=== PATIENT | female | born 1985 | race Caucasian/White ===

== ENCOUNTER → 2020-01-04 09:35 | Outpatient (BNVA) | payer OTHER, SELFPAY | PROVIDERS: Family Provider Nurse Practitioner Family; PCP Nurse Practitioner Family; Visit Provider Registered Nurse | DX: Z86.2 Personal history of diseases of the blood and blood-forming organs and certain disorders involving the immune mechanism (principal); S46.911A Strain of unspecified muscle, fascia and tendon at shoulder and upper arm level, right arm, initial encounter; X58.XXXA Exposure to other specified factors, initial encounter | CPT/HCPCS: 80053; 85025 ==

== ENCOUNTER → 2020-01-23 08:47 | Outpatient (BNVA) | payer OTHER, SELFPAY | PROVIDERS: Family Provider Nurse Practitioner Family; PCP Nurse Practitioner Family; Visit Provider Registered Nurse | DX: M25.519 Pain in unspecified shoulder (principal); Z01.89 Encounter for other specified special examinations | CPT/HCPCS: 85651; 86140; 86431 ==

== ENCOUNTER 2020-12-28 06:09 | Emergency (ER) | payer OTHER, SELFPAY ==
[2020-12-28 06:14] VITALS: BP 116/80; PULSE 78; RESP 22; TEMP 36.5; O2SAT 100; BMI 32.1
--- NOTE | 2020-12-28 06:25 | CTR_ITS ---
PROCEDURE INFORMATION: Exam: CT Abdomen And Pelvis Without Contrast Exam date and time: 12/28/2020 6:25 AM Age: 35 years old Clinical indication: Abdominal pain; Flank; Right; Additional info: Kidney stone TECHNIQUE: Imaging protocol: Computed tomography of the abdomen and pelvis without contrast. Radiation optimization: All CT scans at this facility use at least one of these dose optimization techniques: automated exposure control; mA and/or kV adjustment per patient size (includes targeted exams where dose is matched to clinical indication); or iterative reconstruction. COMPARISON: No relevant prior studies available. RADIATION DOSE METRICS: Total DLP (mGy-cm): 1254.69 FINDINGS: Liver: Normal. No mass. Gallbladder and bile ducts: Multiple gallstones within the gallbladder. Pancreas: Normal. No ductal dilation. Spleen: Normal. No splenomegaly. Adrenal glands: Normal. No mass. Kidneys and ureters: Bilateral nonobstructing renal calyceal stones. 2 mm right UVJ stone with moderate right hydronephrosis. Stomach and bowel: Unremarkable. No obstruction. No mucosal thickening. Appendix: Normal appendix. Intraperitoneal space: Unremarkable. No free air. No significant fluid collection. Vasculature: One or more calcified pelvic phleboliths. Calcification of the abdominal aorta and/or iliac arteries consistent with atherosclerotic vessel disease. Lymph nodes: Unremarkable. No enlarged lymph nodes. Urinary bladder: Unremarkable as visualized. Reproductive: Unremarkable as visualized. Bones/joints: Unremarkable. No acute fracture. Soft tissues: Unremarkable. CT/CT abdomen pelvis wo con [id number] IMPRESSION: 1. 2 mm right UVJ stone with moderate right hydronephrosis. 2. Multiple gallstones within the gallbladder. Radiation Dose CTDIVOL = (mGy): DLP = 1254.69 (mGy-cm)
[2020-12-28 06:27] LABS: Basophils # 0.1 10^3/uL (0.0-0.1); Basophils % 0.8 %; Eosinophils # 0.1 10^3/uL (0.0-0.8); Eosinophils % 0.9 %; Hematocrit 35.4 % (37.0-47.0); Hemoglobin 10.7 g/dL (11.5-15.3); Lymphocytes # 2.3 10^3/uL (0.8-4.8); Lymphocytes % 35.6 %; Mean Corpuscular HGB Conc 30.2 g/dL (30.0-36.0); Mean Corpuscular Hemoglobin 23.2 pg (28.0-34.0); Mean Corpuscular Volume 76.8 fl (81-99); Mean Platelet Volume 9.7 fL (7.4-10.4); Monocytes # 0.8 10^3/uL (0.2-0.9); Monocytes % 12.9 %; Neutrophils # 3.13 10^3/uL (1.8-7.7); Neutrophils % 49.3 %; Nucleated Red Blood Cells % 0 %; Platelet Count 376 10^3/cmm (130-400); Red Blood Count 4.61 10^6/uL (4.1-5.3); Red Cell Distribution Width 17.2 % (12.1-15.1); White Blood Count 6.4 10^3/uL (4.0-10.0)
[2020-12-28] MEDS: sodium chloride 0.9% 1,000 ML 999 ML IV ×2 (06:30)
[2020-12-28] MEDS: ketorolac 30 mg/mL INJ IVP (06:35)
[2020-12-28 06:49] LABS: Alanine Aminotransferase 6 U/L (0-33); Albumin Level 4.2 g/dL (3.5-5.2); Alkaline Phosphatase 58 IU/L (35-105); Aspartate Amino Transferase 12 U/L (0-32); Blood Urea Nitrogen 14 mg/dL (6-20); Calcium 9.4 mg/dL (8.5-10.5); Carbon Dioxide 24 mmol/L (22-29); Chloride 104 mmol/L (98-107); Globulin 3.2 g/dL (1.3-4.6); Glomerular Filtration Rate 94.2 mL/min (90-130); Glucose 98 mg/dL (65-115); Lipase 30 U/L (13-60); Osmolality Calculated 286 mOsm/kg (285-295); Sodium 138 mmol/L (136-145); Total Bilirubin 0.5 mg/dL (0.15-1.2); Total Protein 7.4 g/dL (6.6-8.7)
--- NOTE | 2020-12-28 08:00 | W.ED.GENADLT ---
HPI - General Adult General: Chief complaint: Urogenital-Female Stated complaint: Unable to Urinate/Back Pain Time Seen by Provider: 12/28/20 06:10 History of Present Illness: HPI narrative: HPI: [35] yo patient w/ hx of L sided renal colic presenting to the ED w/ R-sided flank pain x 2. Patient describes the pain as sudden onset severe intermittent crampy pain. Denies N/V since onset of symptoms and has not been able to tolerate PO. No prior abdominal surgeries. Denies fever/chill, dysuria/[]hematuria/polyuria, diarrhea, melena/hematochezia/ or hematemesis. No associated chest pain, SOB, palpitations, exertional shortness of breath and chest pain, or pleuritic chest pain. Onset: 2 days Duration: ongoing Location: home Severity: moderate Review of Systems Narrative: Constitutional: No fever, no chills. HEENT: No vision changes CV: No chest pain, no palpitations PULM: No productive cough, no dyspnea. GI: No abdominal pain, -N/-V/-D. +R-sided flank pain : No Dysuria, no hematuria MSKEL: No muscle pain SKIN: No new rashes, no lesions. NEURO: No headache, no focal weakness. HEME: No visible bruises PSYCH: Normal mood PFSH ED PFSH: Medical History (Updated 12/28/20 @ 08:04 by Alvin Aguirre MD) History of anemia Family History Mother Hypertension Heart disease Father Heart disease Social History Smoking and tobacco status: never smoked Alcohol intake: never Adopted: No Caregiver/support person: No Lives independently: No Household members: spouse and children Marital status: History of recent travel: No Sexually active: Yes Current gender identity: Female Physical Exam Narrative: EXAM NARRATIVE: Head: Atraumatic Eyes: PERRL, conjunctiva without injection, eyes tracking ENT: Mucous membrane moist NECK: Supple without lymphadenopathy LUNGS: LCTAB CV: RRR ABDOMEN: Soft, diffuse abdominal tenderness worse in the R flank, no guarding or rebound tenderness, no McBurney?s point tenderness, no Rovsing/Obturator signs, no Zafar's sign, mild R-sided CVA tenderness EXTREMITY: Normal ROM SKIN: No rash or erythema NEURO: Awake and alert. No focal weakness PSYCH: Cooperative mood and affect Course Vital Signs: Vital signs: Vital Signs Temperature 97.7 F 12/28/20 06:14 Pulse Rate 56 L 12/28/20 10:33 Respiratory Rate 17 12/28/20 10:33 Blood Pressure 105/60 12/28/20 10:33 Pulse Oximetry 96 12/28/20 10:33 MDM - General Adult MDM Narrative: Medical decision making narrative: [35]yo patient w/ hx of nephrolithiasis presenting R-sided flank pain with symptoms consistent with prior presentations of renal colic. Given History and Exam I have lower suspicion for atypical appendicitis, genital torsion, acute cholecystitis, AAA, Aortic Dissection, Serious Bacterial Illness or other emergent intra abdominal pathology. Workup: CBC, BMP, UA, CT abd+pelvis w/o contrast Interventions: IVF, Toradol, PO challenge Findings: UA w/ RBCs. no signs of infection [8:10am] On reassessment, the patient feels pain is improved symptomatic after fluids and medications. No complaints of pain currently. Exam improved on reassessment. Lab evaluation not consistent with acute infection. UA is clear. At this time, the patient has been able to tolerate PO and ambulate in the ER without issues. Disposition: Discharge. Strict return precautions for infected stone or PO intolerance/dehydration discussed. Given Urology follow up should the patient need expert opinion. Lab Data: Labs: Lab Results 12/28/20 12/28/20 12/28/20 06:22 06:22 06:22 WBC 6.4 10^3/uL 10^3/ uL (4.0-10.0) RBC 4.61 10^6/uL 10^6 /uL (4.1-5.3) Hgb 10.7 g/dL L g/dL (11.5-15.3) Hct 35.4 % L % (37.0-47.0) MCV 76.8 fl L fl (81-99) MCH 23.2 pg L pg (28.0-34.0) MCHC 30.2 g/dL g/dL (30.0-36.0) RDW 17.2 % H % (12.1-15.1) Plt Count 376 10^3/cmm 10^3 /cmm (130-400) MPV 9.7 fL fL (7.4-10.4) Neut % (Auto) 49.3 % % Lymph % (Auto) 35.6 % % [place] % (Auto) 12.9 % % Eos % (Auto) 0.9 % % Baso % (Auto) 0.8 % % Neut # (Auto) 3.13 10^3/uL 10^3 /uL (1.8-7.7) Lymph # (Auto) 2.3 10^3/uL 10^3/ uL (0.8-4.8) [place] # (Auto) 0.8 10^3/uL 10^3/ uL (0.2-0.9) Eos # (Auto) 0.1 10^3/uL 10^3/ uL (0.0-0.8) Baso # (Auto) 0.1 10^3/uL 10^3/ uL (0.0-0.1) Nucleated RBC % (a uto) 0 % % Nucleated RBCs # 0.0 /100WBC /100W BC Sodium 138 mmol/L mmol/L (136-145) Potassium 4.0 mmol/L mmol/L (3.5-5.1) Chloride 104 mmol/L mmol/L (98-107) Carbon Dioxide 24 mmol/L mmol/L (22-29) Anion Gap 14.0 (5-19) BUN 14 mg/dL mg/dL (6-20) Creatinine 0.7 mg/dL mg/dL (0.5-0.9) GFR Calculation 94.2 mL/min mL/mi n (90-130) Glucose 98 mg/dL mg/dL (65-115) Calculated Osmolal ity 286 mOsm/kg mOsm/ kg (285-295) Calcium 9.4 mg/dL mg/dL (8.5-10.5) Total Bilirubin 0.5 mg/dL mg/dL (0.15-1.2) AST 12 U/L U/L (0-32) ALT 6 U/L U/L (0-33) Alkaline Phosphata se 58 IU/L IU/L (35-105) Total Protein 7.4 g/dL g/dL (6.6-8.7) Albumin 4.2 g/dL g/dL (3.5-5.2) Globulin 3.2 g/dL g/dL (1.3-4.6) Lipase 30 U/L U/L (13-60) Urine Color Urine Appearance Urine pH Ur Specific Gravit y Urine Protein Urine Glucose (UA) Urine Ketones Urine Blood Urine Nitrate Urine Bilirubin Urine Urobilinogen Ur Leukocyte Cassie ase Urine RBC Urine WBC Ur Squamous Epith Cells Amorphous Sediment Urine Bacteria Urine HCG, Qual Negative (Negative) 12/28/20 09:00 WBC RBC Hgb Hct MCV MCH MCHC RDW Plt Count MPV Neut % (Auto) Lymph % (Auto) [place] % (Auto) Eos % (Auto) Baso % (Auto) Neut # (Auto) Lymph # (Auto) [place] # (Auto) Eos # (Auto) Baso # (Auto) Nucleated RBC % (a uto) Nucleated RBCs # Sodium Potassium Chloride Carbon Dioxide Anion Gap BUN Creatinine GFR Calculation Glucose Calculated Osmolal ity Calcium Total Bilirubin AST ALT Alkaline Phosphata se Total Protein Albumin Globulin Lipase Urine Color Yellow (Yellow) Urine Appearance Clear (CLEAR) Urine pH 6 (5-7) Ur Specific Gravit y 1.015 (1.005-1.030) Urine Protein Neg (Negative) Urine Glucose (UA) Norm (Normal) Urine Ketones 1+ H (Negative) Urine Blood 2+ H (Negative) Urine Nitrate Negative (Negative) Urine Bilirubin Neg (Negative) Urine Urobilinogen Norm mg/dL mg/dL (Negative) Ur Leukocyte Cassie ase Negative (Negative) Urine RBC 0-4 /hpf H /hpf (0-2) Urine WBC Rare /hpf /hpf (0-5) Ur Squamous Epith Cells 0-4 /hpf H /hpf (0-5) Amorphous Sediment Not Reportable Urine Bacteria Trace /hpf /hpf (NONE) Urine HCG, Qual Imaging Data^: Other Imaging: Radiologist's impression: [address] [id number] Scan ReportSigned Patient: Bernadette Abdi #: [id number]: [id number]#:[id number]/Sex: 35 / FADM Date: 12/28/20Loc: ERRoom/Bed:Attending Dr: Ordering Provider/Ordering MD: Alvin Aguirre MD Date of Service: 12/28/20 Procedure(s): CT abdomen pelvis wo con [id number] Accession Number(s): [id number] Report Number: [id number] PROCEDURE INFORMATION: Exam: CT Abdomen And Pelvis Without Contrast Exam date and time: 12/28/2020 6:25 AM Age: 35 years old Clinical indication: Abdominal pain; Flank; Right; Additional info: Kidney stone TECHNIQUE: Imaging protocol: Computed tomography of the abdomen and pelvis without contrast. Radiation optimization: All CT scans at this facility use at least one of these dose optimization techniques: automated exposure control; mA and/or kV adjustment per patient size (includes targeted exams where dose is matched to clinical indication); or iterative reconstruction. COMPARISON: No relevant prior studies available. RADIATION DOSE METRICS: Total DLP (mGy-cm): 1254.69 FINDINGS: Liver: Normal. No mass. Gallbladder and bile ducts: Multiple gallstones within the gallbladder. Pancreas: Normal. No ductal dilation. Spleen: Normal. No splenomegaly. Adrenal glands: Normal. No mass. Kidneys and ureters: Bilateral nonobstructing renal calyceal stones. 2 mm right UVJ stone with moderate right hydronephrosis. Stomach and bowel: Unremarkable. No obstruction. No mucosal thickening. Appendix: Normal appendix. Intraperitoneal space: Unremarkable. No free air. No significant fluid collection. Vasculature: One or more calcified pelvic phleboliths. Calcification of the abdominal aorta and/or iliac arteries consistent with atherosclerotic vessel disease. Lymph nodes: Unremarkable. No enlarged lymph nodes. Urinary bladder: Unremarkable as visualized. Reproductive: Unremarkable as visualized. Bones/joints: Unremarkable. No acute fracture. Soft tissues: Unremarkable. CT/CT abdomen pelvis con [id number] IMPRESSION: 1. 2 mm right UVJ stone with moderate right hydronephrosis. 2. Multiple gallstones within the gallbladder. Radiation Dose CTDIVOL = (mGy): DLP = 1254.69 (mGy-cm) Dictated By:Sudarshan Ramon MDSigned By:Sudarshan Ramon MDSigned Date/Time:12/28/20 0748DD/ 4 Discharge Plan Discharge Patient Disposition: Home Clinical Impression: Renal colic Condition: Stable Prescriptions: No Action baclofen 10 mg tablet 10 mg PO DAILY Qty: 30 RF: 0 prednisone 20 mg tablet 20 mg PO BID 10 Days Qty: 20 RF: 0 Discharge Orders: Discharge ED (Routine); Ordered 12/28/20 Ordered By: Alvin Aguirre Discharge Diet: Advance as tolerated Discharge Activity: Resume usual activity Patient Instructions: Abdominal Pain (ED), Flank Pain (ED) Activity Restrictions/Additional Instructions: Come back to the emergency room you have any worsening pain, fever/chills, nausea/vomiting, or any new concerning complaints. You have a kidney stone today. Attached below is your CT report: [id number] [place], [place] [address] Scan ReportSigned Patient: Mulu AbdiUnit #: [id number]: [id number]#:[id number]/Sex: 35 / FADM Date: 12/28/20Loc: ERRoom/Bed:Attending Dr: Ordering Provider/Ordering MD: Alvin Aguirre MD Date of Service: 12/28/20 Procedure(s): CT abdomen pelvis con [id number] Accession Number(s): [id number] Report Number: [id number] PROCEDURE INFORMATION: Exam: CT Abdomen And Pelvis Without Contrast Exam date and time: 12/28/2020 6:25 AM Age: 35 years old Clinical indication: Abdominal pain; Flank; Right; Additional info: Kidney stone TECHNIQUE: Imaging protocol: Computed tomography of the abdomen and pelvis without contrast. Radiation optimization: All CT scans at this facility use at least one of these dose optimization techniques: automated exposure control; mA and/or kV adjustment per patient size (includes targeted exams where dose is matched to clinical indication); or iterative reconstruction. COMPARISON: No relevant prior studies available. RADIATION DOSE METRICS: Total DLP (mGy-cm): 1254.69 FINDINGS: Liver: Normal. No mass. Gallbladder and bile ducts: Multiple gallstones within the gallbladder. Pancreas: Normal. No ductal dilation. Spleen: Normal. No splenomegaly. Adrenal glands: Normal. No mass. Kidneys and ureters: Bilateral nonobstructing renal calyceal stones. 2 mm right UVJ stone with moderate right hydronephrosis. Stomach and bowel: Unremarkable. No obstruction. No mucosal thickening. Appendix: Normal appendix. Intraperitoneal space: Unremarkable. No free air. No significant fluid collection. Vasculature: One or more calcified pelvic phleboliths. Calcification of the abdominal aorta and/or iliac arteries consistent with atherosclerotic vessel disease. Lymph nodes: Unremarkable. No enlarged lymph nodes. Urinary bladder: Unremarkable as visualized. Reproductive: Unremarkable as visualized. Bones/joints: Unremarkable. No acute fracture. Soft tissues: Unremarkable. CT/CT abdomen pelvis wo con [id number] IMPRESSION: 1. 2 mm right UVJ stone with moderate right hydronephrosis. 2. Multiple gallstones within the gallbladder. Radiation Dose CTDIVOL = (mGy): DLP = 1254.69 (mGy-cm) Dictated By:Sudarshan Ramon MDSigned By:Sudarshan Ramon MDSigned Date/Time:12/28/20 0748DD/ 0625 Coding Level of Care Code ED Sewer Inspector for Hari Kumar
[2020-12-28 09:13] LABS: Urine Appearance Clear (CLEAR); Urine Color Yellow (Yellow)
[2020-12-28 09:14] LABS: Add Urine Microscopic? YES; Bilirubin Urine Neg (Negative); Blood Urine 2+ (Negative); Glucose Urine UA Norm (Normal); Ketones Urine 1+ (Negative); Leukocyte Esterase Urine Negative (Negative); Nitrate Urine Negative (Negative); Protein Urine Neg (Negative); Specific Gravity, Urine 1.015 (1.005-1.030); Urobilinogen Urine Norm (Negative); pH Urine 6 (5-7)
--- NOTE | 2020-12-28 09:17 | PC.NURSE ---
ERP notified of pt's hypotension. No new orders rec'd.
[2020-12-28 09:21] LABS: Bacteria Urine TRACE /hpf; RBC Urine 0-4 /hpf (0-2); Squamous Epithelial Cell Urine 0-4 /hpf (0-5); WBC Urine RARE /hpf (0-5)
[2020-12-28 10:33] VITALS: BP 105/60; PULSE 56; RESP 17; O2SAT 96
== END 2020-12-28 10:36 | disposition home or self-care (01) ==
PROVIDERS: Emergency Provider Emergency Medicine
DX: N23 Unspecified renal colic (principal)
CPT/HCPCS: 74176; 80053; 81001; 81025; 83690; 85025; 96361; 96374; 99284; J1885; J7030

== ENCOUNTER 2021-09-29 18:50 | Emergency (ER) | payer OTHER, SELFPAY ==
[2021-09-29 18:59] VITALS: BP 120/87; PULSE 132; RESP 20; TEMP 36.6; O2SAT 97; BMI 33.0
[2021-09-29 19:38] LABS: Add Urine Microscopic? NO; Charge for UA Resulting for Rev
[2021-09-29 19:47] LABS: Urine Color Yellow (Yellow)
[2021-09-29 19:48] LABS: Bilirubin Urine Neg (Negative); Blood Urine Neg (Negative); Glucose Urine UA Norm (Normal); Ketones Urine Negative (Negative); Leukocyte Esterase Urine Negative (Negative); Nitrate Urine Negative (Negative); Protein Urine Neg (Negative); Urine Appearance Clear (CLEAR); Urobilinogen Urine Norm (Negative); pH Urine 6 (5-7)
--- NOTE | 2021-09-29 20:38 | CTR_ITS ---
PROCEDURE INFORMATION: Exam: CT Abdomen And Pelvis Without Contrast Exam date and time: 09/29/2021 8:59 PM Age: 36 years old Clinical indication: Pain; Other: Left flank; Additional info: Kidney stone TECHNIQUE: Imaging protocol: Computed tomography of the abdomen and pelvis without contrast. Radiation optimization: All CT scans at this facility use at least one of these dose optimization techniques: automated exposure control; mA and/or kV adjustment per patient size (includes targeted exams where dose is matched to clinical indication); or iterative reconstruction. COMPARISON: CT abdomen pelvis wo con [id number] 12/28/2020 6:55 AM RADIATION DOSE METRICS: Total DLP (mGy-cm): 715.83 FINDINGS: Liver: Normal. No mass. Gallbladder and bile ducts: Cholelithiasis. Pancreas: Normal. No ductal dilation. Spleen: Normal. No splenomegaly. Adrenal glands: Normal. No mass. Kidneys and ureters: Left distal ureter 5.3 mm calculus with moderate hydronephrosis and hydroureter with perinephric edema perhaps reflecting associated pyelonephritis. Right kidney nonobstructing calyceal stone. Stomach and bowel: Unremarkable. No obstruction. No mucosal thickening. Appendix: No evidence of appendicitis. Intraperitoneal space: Unremarkable. No free air. No significant fluid collection. Vasculature: Unremarkable. No abdominal aortic aneurysm. Lymph nodes: Unremarkable. No enlarged lymph nodes. Urinary bladder: Unremarkable as visualized. Reproductive: Left ovary 2.3 cm cyst likely follicular in nature. Bones/joints: Unremarkable. No acute fracture. Soft tissues: Unremarkable. Other findings: Small amount nonspecific fluid in the pelvis. CT/CT kidney stone [id number] IMPRESSION: 1. Left distal ureter 5.3 mm calculus with moderate hydronephrosis and hydroureter with perinephric edema perhaps reflecting associated pyelonephritis. 2. Small amount nonspecific fluid in the pelvis. 3. Cholelithiasis. 4. Right kidney nonobstructing calyceal stone. 5. Left ovary 2.3 cm cyst likely follicular in nature.
--- NOTE | 2021-09-29 20:40 | W.ED.ABDPA2 ---
HPI - Abdominal Pain General: Chief Complaint: Abdominal Pain Stated Complaint: Kidney Pain/can't pee Time Seen by Provider: 09/29/21 20:33 Source: patient Mode of arrival: ambulatory Limitations: no limitations History of Present Illness: 36-year-old female states she had a history of kidney stones states that 2 this afternoon started having severe flank pain. States that this felt like her previous kidney stones she states the pain is sharp in nature rates it a 9 out of 10 as well as she is got a vomit. She denies any worsening improving factors denies any fever denies any dysuria. Associated Symptoms: Reports nausea; Denies chills and fever(s) Related Data: Date of Last Menstrual Period: 09/12/21 Review of Systems Const: Denies: fever(s), chills, body aches or change in appetite Eyes: Denies: blurry vision or eye discomfort ENMT: Denies: throat pain or dental pain Card: Denies: chest pain Resp: Denies: dyspnea GI: Reports: abdominal pain and nausea : Reports: flank pain Musc: Denies: neck pain or back pain Skin/Breast: Denies: rash Neuro: Denies: headache(s) Psych: Denies: depression Ed/Lymph: Denies: easy bruising All/Imm: Denies: urticaria PFSH ED PFSH: Medical History History of anemia Family History Mother Hypertension Heart disease Father Heart disease Social History Smoking and tobacco status: never smoked Alcohol intake: never Adopted: No Caregiver/support person: No Lives independently: No Household members: spouse and children Marital status: History of recent travel: No Sexually active: Yes Current gender identity: Female Female Reproductive History: Date of last menstrual period: 09/12/21 Physical Exam Const: COMMON NORMALS: no acute distress, patient oriented x3 and healthy appearing HENMT: COMMON NORMALS: normocephalic and atraumatic HEAD & SCALP: normocephalic and atraumatic Eye: COMMON NORMALS: Equal, round and reactive pupils present and EOMs intact bilaterally PUPIL: Yes Equal, round and reactive pupils present Neck/C-Spine: COMMON NORMALS: full ROM and supple Chest: COMMONS NORMALS: normal inspection of the chest and normal palpation of entire chest wall Resp: COMMON NORMALS: normal respiratory effort, No retractions, No use of accessory muscles and clear to auscultation bilaterally AUSCULTATION: clear to auscultation bilaterally Cardio: COMMON NORMALS: regular rate, regular rhythm and No murmurs present (Cardio) RATE: regular rate RHYTHM: regular rhythm GI: COMMON NORMALS: Normal to inspection, nondistended, normoactive bowel sounds present, Soft to palpation, non-tender and no masses PALPATION: Yes Soft to palpation Extremity: COMMON NORMALS: normal to inspection and full ROM Neuro: COMMON NORMALS: patient oriented x3, moves all extremities and no focal motor deficits Psych: COMMON NORMALS: mental status grossly normal, Normal thought process present and cooperative THOUGHT PROCESS: Normal thought process present Skin: COMMON NORMALS: no rashes or lesions noted and no wounds GENERAL SKIN EXAM: no rashes or lesions noted Course Vital Signs: Vital signs: Vital Signs Temperature 97.9 F 09/29/21 18:59 Pulse Rate 73 09/29/21 22:11 Respiratory Rate 16 09/29/21 22:11 Blood Pressure 117/93 09/29/21 22:11 Pulse Oximetry 100 09/29/21 22:11 Oxygen Delivery Me thod Nasal Cannula 09/29/21 21:54 MDM - Abdominal Pain Medical Decision Making Patient presents here with kidney stone likely causing her pain. Her pain is much improved here after pain meds. Will discharge home with a strainer she has no signs of pyelonephritis her urine here is clean. She is to follow-up with urology return if worsening will prescribe her Norris for home she understands agrees to plan. Lab Data : 09/29/21 20:55 09/29/21 20:55 Labs/Radiology: Radiology Impressions Abdomen/Pelvis CT 09/29/21 20:38 IMPRESSION: 1. Left distal ureter 5.3 mm calculus with moderate hydronephrosis and hydroureter with perinephric edema perhaps reflecting associated pyelonephritis. 2. Small amount nonspecific fluid in the pelvis. 3. Cholelithiasis. 4. Right kidney nonobstructing calyceal stone. 5. Left ovary 2.3 cm cyst likely follicular in nature. Laboratory Results WBC 13.4 10^3/uL (4.0-10.0) H 09/29/21 20:55 RBC 4.19 10^6/uL (4.1-5.3) 09/29/21 20: Hgb 10.8 g/dL (11.5-15.3) L 09/29/21 20: Hct 33.6 % (37.0-47.0) L 09/29/21 20: MCV 80.2 fl (81-99) L 09/29/21 20: MCH 25.8 pg (28.0-34.0) L 09/29/21 20: MCHC 32.1 g/dL (30.0-36.0) 09/29/21: RDW 14.5 % (12.1-15.1) 09/29/21 20: Plt Count 319 10^3/cmm (130-400) 09/29/21 20: MPV 9.0 fL (7.4-10.4) 09/29/21 20: Neut % (Auto) 77.0 % 09/29/21 20: Lymph % (Auto) 14.8 % 09/29/21 20: [place] % (Auto) 7.0 % 09/29/21 20: Eos % (Auto) 0.4 % 09/29/21: Baso % (Auto) 0.5 % 09/29/21: Neut # (Auto) 10.33 10^3/uL (1.8-7.7) H 09/29/21 20: Lymph # (Auto) 2.0 10^3/uL (0.8-4.8) 09/29/21 20: [place] # (Auto) 0.9 10^3/uL (0.2-0.9) 09/29/21 20: Eos # (Auto) 0.1 10^3/uL (0.0-0.8) 09/29/21 20: Baso # (Auto) 0.1 10^3/uL (0.0-0.1) 09/29/21 20: Nucleated RBC % (auto) 0 % 09/29/21: Nucleated RBCs # 0.0 /100WBC 09/29/21 20:55 Sodium 137 mmol/L (136-145) 09/29/21 20:55 Potassium 3.8 mmol/L (3.5-5.1) 09/29/21 20:55 Chloride 101 mmol/L (98-107) 09/29/21 20:55 Carbon Dioxide 24 mmol/L (22-29) 09/29/21 20:55 Anion Gap 15.8 (5-19) 09/29/21 20:55 BUN 16 mg/dL (6-20) 09/29/21 20:55 Creatinine 0.9 mg/dL (0.5-0.9) 09/29/21 20:55 GFR Calculation 70.1 mL/min (90-130) L 09/29/21 20:55 Glucose 140 mg/dL (65-115) H 09/29/21 20:55 Calculated Osmolality 287 mOsm/kg (285-295) 09/29/21 20:55 Calcium 9.0 mg/dL (8.5-10.5) 09/29/21 20:55 Total Bilirubin 0.2 mg/dL (0.15-1.2) 09/29/21 20:55 AST 13 U/L (0-32) 09/29/21 20:55 ALT 10 U/L (0-33) 09/29/21 20:55 Alkaline Phosphatase 57 IU/L (35-105) 09/29/21 20:55 Total Protein 7.0 g/dL (6.6-8.7) 09/29/21 20:55 Albumin 4.3 g/dL (3.5-5.2) 09/29/21 20:55 Globulin 2.7 g/dL (1.3-4.6) 09/29/21 20:55 Lipase 33 U/L (13-60) 09/29/21 20:55 Urine Color Yellow (Yellow) 09/29/21 19:15 Urine Appearance Clear (CLEAR) 09/29/21 19:15 Urine pH 6 (5-7) 09/29/21 19:15 Ur Specific [place] 1.020 (1.005-1.030) 09/29/21 19:15 Urine Protein Neg (Negative) 09/29/21 19:15 Urine Glucose (UA) Norm (Normal) 09/29/21 19:15 Urine Ketones Negative (Negative) 09/29/21 19:15 Urine Blood Neg (Negative) 09/29/21 19:15 Urine Nitrate Negative (Negative) 09/29/21 19:15 Urine Bilirubin Neg (Negative) 09/29/21 19:15 Urine Urobilinogen Norm mg/dL (Negative) 09/29/21 19:15 Ur Leukocyte Esterase Negative (Negative) 09/29/21 19:15 Discharge Plan Discharge Patient Disposition: Home Clinical Impression: Kidney stone Condition: Stable Prescriptions: New hydrocodone-acetaminophen 5-325 mg tablet 1 tab PO Q6H PRN (Reason: pain) Qty: 14 0RF ondansetron 4 mg tablet,disintegrating 4 mg PO Q6H PRN (Reason: nausea and vomiting) Qty: 14 0RF No Action baclofen 10 mg tablet 10 mg PO DAILY Qty: 30 0RF prednisone 20 mg tablet 20 mg PO BID 10 Days Qty: 20 0RF Rx Instructions: 1 tab by mouth two times daily for 5 days then 1 tab daily for next 5 days. phentermine 37.5 mg tablet 37.5 mg PO DAILY Qty: 30 0RF Rx Instructions: must administer 30 minutes before or 1-2 hours after breakfast Discharge Orders: Discharge ED (Routine); Ordered 09/29/21 Ordered By: Nubia Johnson Referrals: Haseeb Mederos MD [Physician] - 1-3 days Discharge Diet: Advance as tolerated Discharge Activity: Resume usual activity Patient Instructions: Kidney Stones (ED), Opioid Safety Coding Level of Care Code ED Infant Room Teacher for Chg Fwd Exam Comprehensive
[2021-09-29] MEDS: ondansetron 2 mg/ML SDV 2 mL 4 MG IVP (20:47)
[2021-09-29 20:49] VITALS: RESP 20
[2021-09-29] MEDS: HYDROmorphone 1 mg/mL INJ 1 mL IVP (20:49)
[2021-09-29 21:00] LABS: Basophils # 0.1 10^3/uL (0.0-0.1); Basophils % 0.5 %; Eosinophils # 0.1 10^3/uL (0.0-0.8); Eosinophils % 0.4 %; Hematocrit 33.6 % (37.0-47.0); Hemoglobin 10.8 g/dL (11.5-15.3); Lymphocytes % 14.8 %; Mean Corpuscular HGB Conc 32.1 g/dL (30.0-36.0); Mean Corpuscular Hemoglobin 25.8 pg (28.0-34.0); Mean Corpuscular Volume 80.2 fl (81-99); Monocytes # 0.9 10^3/uL (0.2-0.9); Neutrophils # 10.33 10^3/uL (1.8-7.7); Nucleated Red Blood Cells % 0 %; Platelet Count 319 10^3/cmm (130-400); Red Blood Count 4.19 10^6/uL (4.1-5.3); Red Cell Distribution Width 14.5 % (12.1-15.1); White Blood Count 13.4 10^3/uL (4.0-10.0)
[2021-09-29] MEDS: sodium chloride 0.9% 1,000 ML 999 ML IV (21:21)
[2021-09-29 21:29] LABS: Alanine Aminotransferase 10 U/L (0-33); Albumin Level 4.3 g/dL (3.5-5.2); Alkaline Phosphatase 57 IU/L (35-105); Anion Gap 15.8 (5-19); Aspartate Amino Transferase 13 U/L (0-32); Blood Urea Nitrogen 16 mg/dL (6-20); Carbon Dioxide 24 mmol/L (22-29); Chloride 101 mmol/L (98-107); Globulin 2.7 g/dL (1.3-4.6); Glomerular Filtration Rate 70.1 mL/min (90-130); Glucose 140 mg/dL (65-115); Lipase 33 U/L (13-60); Osmolality Calculated 287 mOsm/kg (285-295); Potassium 3.8 mmol/L (3.5-5.1); Sodium 137 mmol/L (136-145); Total Bilirubin 0.2 mg/dL (0.15-1.2)
[2021-09-29 21:54] VITALS: BP 129/78; PULSE 75; RESP 18; O2SAT 99
[2021-09-29 22:11] VITALS: BP 117/93; PULSE 73; RESP 16; O2SAT 100
[2021-09-29] MEDS: ketorolac 30 mg/mL INJ IVP (22:30)
[2021-09-29] MEDS: HYDROcodone-acetaminophen 5-325 mg Tablet 1 TAB PO (22:30)
[2021-09-29 23:24] VITALS: BP 131/88; PULSE 82; RESP 16; O2SAT 100
--- NOTE | 2021-09-30 20:36 | DCPLANNER ---
Addendum entered by Sisi Hinds 10/09/21 11:51: Patient had a follow up appointment scheduled for 10.07.21 with Nica Bauman at urology - patient did attend appointment. Original Note: manager of operations had message to schedule a follow up appointment for patient with urology. manager of operations sent patients information to the front office staff at urology. Patients information will be printed and reviewed. Clinic will call patient with appointment information.
== END 2021-09-29 23:10 | disposition home or self-care (01) ==
PROVIDERS: Emergency Provider Emergency Medicine
DX: N20.0 Calculus of kidney (principal); Z87.442 Personal history of urinary calculi
CPT/HCPCS: 74176; 80053; 81003; 83690; 85025; 96361; 96374; 96375; 99285; J1170; J1885; J2405; J7030

== ENCOUNTER 2021-10-07 07:20 | Outpatient (CLI) | payer OTHER, SELFPAY ==
--- NOTE | 2021-10-07 07:30 | XR_ITS ---
WS: [id number] XR KUB [id number] REASON FOR EXAM: STONES FINDINGS: CT scan 09/29/2021 demonstrated small right intrarenal calculus and distal left ureteral calculus. The distal left ureteral calculus could be identified on the planishing press operator view of the CT scan. A congruent right intrarenal calculus is identified. No other urinary tract calculi are identified, specifically no calculus identified in the region of t he distal left ureter or the urinary bladder. Remainder of the abdomen and pelvis are unremarkable. XR/XR KUB [id number] IMPRESSION: Small right intrarenal calculus. Distal left ureteral calculus no longer identifiable.
== END 2021-10-07 07:21 | disposition home or self-care (01) ==
LOC: RAD 07:22
PROVIDERS: Visit Provider Urology
DX: N20.2 Calculus of kidney with calculus of ureter (principal)
CPT/HCPCS: 74018; 81003

== ENCOUNTER 2021-10-23 06:57 | Outpatient (CLI) | payer OTHER, SELFPAY ==
--- NOTE | 2021-10-23 07:00 | XR_ITS ---
WS: [id number] KUB, AP view, 10/23/2021 Clinical Data: STONES Comparison: KUB, 10/07/2021 Findings: No abnormal intraabdominal masses are seen. There is no dilatated small bowel or evidence of obstruct ion. There is a small calcification to the right of the L2 transverse process which may be a renal calculu s. Fecal material in bowel gas obscure detail over both kidneys. No calcifications are seen in the tr ue pelvis. XR/XR KUB [id number] Impression: No change in possible right renal calculus.
== END 2021-10-23 06:58 | disposition home or self-care (01) ==
LOC: RAD 06:58
PROVIDERS: Visit Provider Nurse Practitioner Family
DX: N20.1 Calculus of ureter (principal)
CPT/HCPCS: 74018; 81003

== ENCOUNTER → 2022-05-12 11:44 | Outpatient (BNVA) | payer SELFPAY | PROVIDERS: Visit Provider Nurse Practitioner Family | DX: J02.9 Acute pharyngitis, unspecified (principal); J02.0 Streptococcal pharyngitis | CPT/HCPCS: 87071; 87880 ==

== ENCOUNTER 2023-09-09 21:01 | Emergency (ER) | payer SELFPAY ==
[2023-09-09 21:02] VITALS: BP 135/80; PULSE 82; RESP 16; TEMP 36.8; O2SAT 98
--- NOTE | 2023-09-09 21:42 | CTR_ITS ---
PROCEDURE INFORMATION: Exam: CT Abdomen And Pelvis Without Contrast Exam date and time: 09/09/2023 9:54 PM Age: 38 years old Clinical indication: Abdominal pain; Prior surgery; Surgery date: 6+ months; Surgery type: Csection x5. Tubal. Patient HX: C/O bilateral flank pain RT worse than left. History of recurrent nephrolithiasis. TECHNIQUE: Imaging protocol: Computed tomography of the abdomen and pelvis without contrast. Radiation optimization: All CT scans at this facility use at least one of these dose optimization techniques: automated exposure control; mA and/or kV adjustment per patient size (includes targeted exams where dose is matched to clinical indication); or iterative reconstruction. COMPARISON: CT kidney stone [id number] 09/29/2021 8:59 PM RADIATION DOSE METRICS: Total DLP (mGy-cm): 762.56 FINDINGS: Liver: Normal. No mass. Gallbladder and biliary ducts: Multiple subcentimeter faintly calcified gallstones up to 6 mm in diameter. Pancreas: Normal. No ductal dilation. Spleen: Normal. No splenomegaly. Adrenal glands: Normal. No mass. Kidneys and ureters: 1.2 cm angiomyolipoma in the upper pole of the left kidney is unchanged. Mild right hydroureteronephrosis due to 3 x 3 mm stone in the right UV junction. Additional 4 mm caliceal stone in the lower pole of the right kidney. Previous left hydroureteronephrosis due to left UVJ stone has resolved and passed since 09/29/2021. Stomach and bowel: Unremarkable. No obstruction. No mucosal thickening. Appendix: Unremarkable appendix. Intraperitoneal space: Unremarkable. No free air. No significant fluid collection. Vasculature: Unremarkable. No abdominal aortic aneurysm. Lymph nodes: Unremarkable. No enlarged lymph nodes. Urinary bladder: Unremarkable as visualized. Reproductive: Incidentally noted 3.2 cm left ovarian cyst is unchanged from 09/29/2021. Bones/joints: Unremarkable. No acute fracture. Soft tissues: Unremarkable. CT/CT kidney stone [id number] IMPRESSION: 1. Mild right hydroureteronephrosis due to 3 x 3 mm right UVJ stone. Additional 4 mm nonobstructive right renal stone. 2. Multiple gallstones without acute gallbladder abnormality or biliary dilatation. Stable small left renal angiomyolipoma.
--- NOTE | 2023-09-09 21:47 | ED_ITS ---
HPI - Female Genitourinary 2 General: Chief complaint: Urogenital-Female Stated complaint: back pain slower urine output Time Seen by Provider: 09/09/23 21:31 Source: patient Mode of arrival: ambulatory Limitations: no limitations History of Present Illness: Patient is a 38-year-old female who presents to the emergency department complaining of right lower back pain onset just couple hours prior to arrival. Patient reports history of 2 kidney stones, and states that she does take tamsulosin daily. States the pain began all of a sudden and does feel similar to prior kidney stones. She does see a urologist in [place]. She also reports symptoms of a UTI as she states that she has been having difficulty urinating, and did buy [id number] fish Keflex at a feed store. She is denying any dysuria or hematuria, however does note that she is currently on her menstrual cycle. She currently reports the pain a 4/5 out of 10, but does note it is getting worse. On initial examination she is pacing around the room and pain. Pain is noted to be primarily in the right lower back with no radiation at this time. No nausea or vomiting, fever, chest pain or shortness of breath, or other symptoms to report currently. MD elicited complaint: back pain Onset (ago): hour(s) Location of symptoms: low back Severity: moderate Female Urogenital Radiation: Non-Radiating Consistency: constant and progressively worsening Urinary symptoms: Difficulty Urinating Associated symptoms: Deny abdominal pain, headache(s) or nausea Date of Last Menstrual Period: 09/09/23 Review of Systems 2 General: Reports: 10 or more systems reviewed and unremarkable except in HPI and below Const: Denies: fever(s), chills, change in appetite, change in weight or diaphoresis ENMT: Denies: throat pain or hoarseness Card: Denies: chest pain, palpitations or lightheadedness Resp: Denies: dyspnea, productive cough or wheezing GI: Denies: abdominal pain, nausea, vomiting, diarrhea, constipation, bloating, change in stool character or hematochezia : Reports: difficulty voiding; Denies: flank pain, dysuria, urinary frequency, urinary urgency or hematuria Musc: Reports: back pain (Right lower); Denies: neck pain Skin/Breast: Denies: rash or new lesions Neuro: Denies: headache(s) or dizziness PFS ED 2 PFS: Medical History History of anemia Surgical History History of tubal ligation History of Family History Mother Hypertension Heart disease Father Heart disease Social History Smoking and tobacco/nicotine status: never used tobacco/nicotine Alcohol intake: never Substance/Drug Use: never Adopted: No Caregiver/support person: No Lives independently: No Household members: spouse and children Marital status: Number of children: 5 Current occupational status: employed Sexually active: Yes Do you think of yourself as: Straight/Heterosexual Current gender identity: Female Female Reproductive History: Date of last menstrual period: 09/09/23 Physical Exam 2 Const: COMMON NORMALS: patient oriented x3, no limitations, healthy appearing, alert and well nourished GENERAL APPEARANCE: cooperative O RIENTATION/CONSCIOUSNESS: Yes awake OTHER: Patient does appear uncomfortable, is pacing around the room HENMT: COMMON NORMALS: normocephalic, atraumatic, hearing grossly normal bilaterally, external ears normal, Normal external nose present, Normal nasal mucous membranes and turbinates present and moist oral mucous membranes HEAD & SCALP: normocephalic and atraumatic NOSE: Normal external nose present and Normal nasal mucous membranes and turbinates present EXTERNAL EAR: Yes external ears normal Eye: COMMON NORMALS: Equal, round and reactive pupils present, EOMs intact bilaterally, conjunctivae normal and normal visual gamboa by confrontation C ONJUNCTIVA: Yes conjunctivae normal PUPIL: Yes Equal, round and reactive pupils present Neck/C-Spine: COMMON NORMALS: full ROM, supple, no meningeal signs and no JVD Resp: COMMON NORMALS: normal respiratory effort, No retractions, No use of accessory muscles and clear to auscultation bilaterally AUSCULTATION: clear to auscultation bilaterally, no crackles, no rales, no rhonchi and no wheezes Cardio: COMMON NORMALS: no JVD, regular rate, regular rhythm, S1 normal heart sound present, S2 normal heart sound present, No gallops present (Cardio), No clicks present (Cardio), No murmurs present (Cardio), No rub (Cardio) and Peripheral pulses 2+ throughout RATE: regular rate RHYTHM: regular rhythm HEART SOUNDS: S1 normal heart sound present and S2 normal heart sound present PERIPHERAL PULSES: Peripheral pulses 2+ throughout GI: COMMON NORMALS: Normal to inspection, nondistended, normoactive bowel sounds present, Soft to palpation, non-tender, No hepatosplenomegaly present and no masses AUSCULTATION: Yes normoactive bowel sounds PALPATION: Yes Soft to palpation, No Guarding due to palpation present (GI), No Rigid due to palpation and Yes No hepatosplenomegaly present RECTAL EXAM: deferred : COMMON NORMALS: Yes no CVA tenderness BLADDER/KIDNEY EXAM: Yes no CVA tenderness Back/Pelvis: COMMON NORMALS: no CVA tenderness OTHER: Mild reproducible tenderness to palpation of the right lower paralumbar muscles Extremity: COMMON NORMALS: normal to inspection and full ROM Neuro: COMMON NORMALS: patient oriented x3, moves all extremities, no focal motor deficits and no sensory deficits noted SENSORIUM/ORIENTATION: Yes alert MENINGEAL SIGNS: Yes no meningeal signs Psych: COMMON NORMALS: mental status grossly normal, cooperative and speech normal SPEECH: Yes normal speech Skin: COMMON NORMALS: no rashes or lesions noted GENERAL SKIN EXAM: no rashes or lesions noted Course 2 Vital Signs: Vital signs: Vital Signs Temperature 98.2 F 09/09/23 21:02 Pulse Rate 60 09/09/23 22:52 Respiratory Rate 16 09/09/23 22:52 Blood Pressure 108/57 09/09/23 22:52 Pulse Oximetry 100 09/09/23 22:52 Oxygen Delivery Me thod Room Air 09/09/23 22:52 [facility] - Female Medical Decision Making Patient presented with acute onset of right lower back pain, compared to 2 prior history of kidney stones. She does have a urologist that she sees and is on tamsulosin every day. She was noting some difficulty with urination along with the pain, however had no other concerning signs or symptoms to report. Her vitals on arrival were normal and condition has remained stable. Physical examination did show that she appeared uncomfortable, pacing around the room, and there was some reproducible tenderness to palpation of the right lower back. Her blood work was all unremarkable, urinalysis revealed evidence of a minor urinary tract infection. CT did show a nonobstructing, small stone at the right UVJ. Due to these nonemergent findings she will continue to take her tamsulosin at home and do ibuprofen and Tylenol for pain, as she notes that after receiving Toradol her pain is at a 0/10. In addition, will treat empirically with cefdinir for any residual urinary tract infection. Blood was in her urinalysis as she is currently on her menstrual cycle. Reasons to return were discussed thoroughly and she is to follow-up with primary care/urology. Care of patient discussed with supervising ED physician, Dr. Simmons, who agrees at this time. Lab Data 09/09/23 22:06 09/09/23 22:06 Radiology Impressions Abdomen/Pelvis CT 09/09/23 21:42 IMPRESSION: 1. Mild right hydroureteronephrosis due to 3 x 3 mm right UVJ stone. Additional 4 mm nonobstructive right renal stone. 2. Multiple gallstones without acute gallbladder abnormality or biliary dilatation. Stable small left renal angiomyolipoma. Laboratory Results WBC 7.93 10^3/uL (3.29-11.43) 09/09/23 22:06 RBC 4.47 10^6/uL (3.85-5.65) 09/09/23 22:06 Hgb 12.20 g/dL (11.27-16.99) 09/09/23 22:06 Hct 37.2 % (36-47) 09/09/23 22:06 MCV 83.2 fl (85-98) L 09/09/23 22:06 MCH 27.3 pg (27-33) 09/09/23 22:06 MCHC 32.8 g/dL (30-55) 09/09/23 22:06 RDW 14.6 % (12.1-15.1) 09/09/23 22:06 Plt Count 307 10^3/cmm (157-399) 09/09/23 22:06 MPV 9.3 fL (7.4-10.4) 09/09/23 22:06 Neut % (Auto) 56.3 % 09/09/23 22:06 Lymph % (Auto) 32.2 % 09/09/23 22:06 Darke % (Auto) 8.2 % 09/09/23 22:06 Eos % (Auto) 2.4 % 09/09/23 22:06 Baso % (Auto) 0.6 % 09/09/23 22:06 Neut # (Auto) 4.47 10^3/uL (1.8-7.7) 09/09/23 22:06 Lymph # (Auto) 2.6 10^3/uL (0.8-4.8) 09/09/23 22:06 Darke # (Auto) 0.7 10^3/uL (0.2-0.9) 09/09/23 22:06 Eos # (Auto) 0.2 10^3/uL (0.0-0.8) 09/09/23 22:06 Baso # (Auto) 0.1 10^3/uL (0.0-0.1) 09/09/23 22:06 Nucleated RBC % (auto) 0 % 09/09/23 22:06 Nucleated RBCs # 0.0 /100WBC 09/09/23 22:06 Sodium 137 mmol/L (136-145) 09/09/23 22:06 Potassium 4.0 mmol/L (3.5-5.1) 09/09/23 22:06 Chloride 102 mmol/L (98-107) 09/09/23 22:06 Carbon Dioxide 22 mmol/L (22-29) 09/09/23 22:06 Anion Gap 17.0 (5-19) 09/09/23 22:06 BUN 14 mg/dL (6-20) 09/09/23 22:06 Creatinine 0.8 mg/dL (0.5-0.9) 09/09/23 22:06 GFR Calculation 79.4 mL/min (90-130) L 09/09/23 22:06 Glucose 98 mg/dL (65-115) 09/09/23 22:06 Calculated Osmolality 284 mOsm/kg (285-295) L 09/09/23 22:06 Calcium 9.2 mg/dL (8.5-10.5) 09/09/23 22:06 Total Bilirubin 0.2 mg/dL (0.15-1.2) 09/09/23 22:06 AST 13 U/L (0-32) 09/09/23 22:06 ALT 10 U/L (0-33) 09/09/23 22:06 Alkaline Phosphatase 62 U/L (35-105) 09/09/23 22:06 Total Protein 7.5 g/dL (6.6-8.7) 09/09/23 22:06 Albumin 4.2 g/dL (3.5-5.2) 09/09/23 22:06 Globulin 3.3 g/dL (1.3-4.6) 09/09/23 22:06 HCG, Qual Negative (Negative) 09/09/23 22:06 Urine Color Yellow (Yellow) 09/09/23 22:42 Urine Appearance Clear (CLEAR) 09/09/23 22:42 Urine pH 5 (5-7) 09/09/23 22:42 Ur Specific [place] 1.010 (1.005-1.030) 09/09/23 22:42 Urine Protein Neg (Negative) 09/09/23 22:42 Urine Glucose (UA) Norm (Normal) 09/09/23 22:42 Urine Ketones Negative (Negative) 09/09/23 22:42 Urine Blood 3+ (Negative) H 09/09/23 22:42 Urine Nitrate Negative (Negative) 09/09/23 22:42 Urine Bilirubin Neg (Negative) 09/09/23 22:42 Urine Urobilinogen Neg mg/dL (Negative) 09/09/23 22:42 Ur Leukocyte Esterase Negative (Negative) 09/09/23 22:42 Urine RBC 5-10 /hpf (0-2) H 09/09/23 22:42 Urine WBC 5-10 /hpf (0-5) H 09/09/23 22:42 Ur Squamous Epith Cells 0-4 /hpf (0-5) H 09/09/23 22:42 Amorphous Sediment Not Reportable 09/09/23 22:42 Urine Bacteria 1+ /hpf (NONE) H 09/09/23 22:42 All radiology interpretation(s) finalized by discharge Discharge Plan Discharge Patient Disposition: Home Clinical Impression: Ureterolithiasis Condition: Stable Prescriptions: New cefdinir 300 mg capsule 300 mg PO BID 7 Days Qty: 14 0RF No Action nystatin 100,000 unit/gram ointment 1 applic topical BID 7 Days Qty: 30 0RF Discharge Orders: Discharge ED (Routine); Ordered 09/10/23 Ordered By: Frankie Mackenzie Referrals: Elizabeth Piedra APRN [Primary Care Provider] - Discharge Diet: As Directed Discharge Activity: Increase activity as tolerated Patient Instructions: Kidney Stones (ED) Activity Restrictions/Additional Instructions: Continue taking your Flomax at home. Cefdinir as prescribed. Tylenol and ibuprofen for any pain. Please monitor for any new or worsening symptoms and return for reevaluation. Otherwise you may follow-up with primary care and/or your urologist. Coding Level of Care Code ED Delivery Supervisor for Hari Kumar
[2023-09-09 22:10] LABS: Basophils # 0.1 10^3/uL (0.0-0.1); Basophils % 0.6 %; Eosinophils # 0.2 10^3/uL (0.0-0.8); Eosinophils % 2.4 %; Hematocrit 37.2 % (36-47); Lymphocytes # 2.6 10^3/uL (0.8-4.8); Lymphocytes % 32.2 %; Mean Corpuscular HGB Conc 32.8 g/dL (30-55); Mean Corpuscular Hemoglobin 27.3 pg (27-33); Mean Corpuscular Volume 83.2 fl (85-98); Mean Platelet Volume 9.3 fL (7.4-10.4); Monocytes # 0.7 10^3/uL (0.2-0.9); Monocytes % 8.2 %; Neutrophils # 4.47 10^3/uL (1.8-7.7); Neutrophils % 56.3 %; Nucleated Red Blood Cells % 0 %; Platelet Count 307 10^3/cmm (157-399); Red Blood Count 4.47 10^6/uL (3.85-5.65); Red Cell Distribution Width 14.6 % (12.1-15.1); White Blood Count 7.93 10^3/uL (3.29-11.43)
[2023-09-09 22:31] LABS: HCG, Serum Qual Negative (Negative)
[2023-09-09 22:34] LABS: Alanine Aminotransferase 10 U/L (0-33); Albumin Level 4.2 g/dL (3.5-5.2); Alkaline Phosphatase 62 U/L (35-105); Aspartate Amino Transferase 13 U/L (0-32); Blood Urea Nitrogen 14 mg/dL (6-20); Calcium 9.2 mg/dL (8.5-10.5); Carbon Dioxide 22 mmol/L (22-29); Chloride 102 mmol/L (98-107); Globulin 3.3 g/dL (1.3-4.6); Glomerular Filtration Rate 79.4 mL/min (90-130); Glucose 98 mg/dL (65-115); Osmolality Calculated 284 mOsm/kg (285-295); Sodium 137 mmol/L (136-145); Total Bilirubin 0.2 mg/dL (0.15-1.2); Total Protein 7.5 g/dL (6.6-8.7)
[2023-09-09] MEDS: sodium chloride 0.9% 1,000 ML 999 ML IV (22:47)
[2023-09-09] MEDS: ketorolac 60 mg/2 mL INJ 30 MG IVP (22:49)
[2023-09-09] MEDS: ondansetron 2 mg/ML SDV 2 mL 4 MG IVP (22:50)
[2023-09-09 22:52] VITALS: BP 108/57; PULSE 60; RESP 16; O2SAT 100
[2023-09-10 00:19] LABS: Add Urine Microscopic? YES; Bacteria Urine 1+ /hpf; Bilirubin Urine Neg (Negative); Blood Urine 3+ (Negative); Glucose Urine UA Norm (Normal); Ketones Urine Negative (Negative); Leukocyte Esterase Urine Negative (Negative); Nitrate Urine Negative (Negative); Protein Urine Neg (Negative); Squamous Epithelial Cell Urine 0-4 /hpf (0-5); Urine Appearance Clear (CLEAR); Urine Color Yellow (Yellow); Urobilinogen Urine Neg (Negative); pH Urine 5 (5-7)
[2023-09-10] MEDS: cefdinir 300 MG CAPSULE PO (00:33)
[2023-09-10 00:38] VITALS: BP 103/59; PULSE 77; RESP 16
== END 2023-09-10 00:39 | disposition home or self-care (01) ==
PROVIDERS: Emergency Provider Physician Assistant; PCP Nurse Practitioner Family
DX: N20.1 Calculus of ureter (principal)
CPT/HCPCS: 74176; 80053; 81001; 81003; 84703; 85025; 96361; 96374; 96375; 99285; J1885; J2405; J7030

== ENCOUNTER 2024-03-09 12:06 | Outpatient (CLI) | payer OTHER, SELFPAY ==
--- NOTE | 2024-03-09 12:10 | US_ITS ---
WS: [id number] US transvaginal [id number] HISTORY: Menorrhagia COMPARISON: None available. Uterus: 9.3 cm x 4.5 cm x 4.2 cm. Uterus is tipped posteriorly. No fibroid identified. Endometrium: 0.5 cm. Poor visualization of the endometrium. The endometrium is only minimally visuali zed at the lower uterine segment. Right ovary: RIGHT ovary is not identified. No adnexal mass. Left ovary: 3.3 cm x 2.9 cm x 1.8 cm. Small follicles. No solid mass. Normal vascularity. No free fluid in the cul-de-sac. US/US transvaginal [id number] IMPRESSION: 1. Poor visualization of the endometrium. The entire endometrium is not visual ized well. For additional evaluation of the endometrium MRI pelvis with TUTOR pro tocol with and without contrast may be of benefit. 2. RIGHT ovary is not identified.
== END 2024-03-09 12:07 | disposition home or self-care (01) ==
LOC: RAD 12:08
PROVIDERS: PCP Nurse Practitioner Family; Visit Provider Nurse Practitioner Family
DX: N92.4 Excessive bleeding in the premenopausal period (principal)
CPT/HCPCS: 76830

== ENCOUNTER → 2024-11-02 12:28 | Outpatient (BNVA) | payer OTHER, SELFPAY | PROVIDERS: PCP Nurse Practitioner Family; Visit Provider Nurse Practitioner | DX: J02.9 Acute pharyngitis, unspecified (principal) | CPT/HCPCS: 87880 ==

== ENCOUNTER 2025-01-21 13:30 | Outpatient (CLI) | payer OTHER, SELFPAY ==
--- NOTE | 2025-01-21 13:00 | MM_ITS ---
WS: [id number] BILATERAL 3D TOMOSYNTHESIS DIGITAL SCREENING MAMMOGRAPHY WITH CAD CLINICAL INFORMATION: SCREENING HISTORY: Screening mammogram. No current complaints. COMPARISON: Baseline TECHNIQUE: Bilateral CC and MLO views. FINDINGS: The breasts are composed of heterogeneous fibroglandular density tissue, which can limit the detection of small underlying mass lesions. No suspicious mass, asymmetry, calcifications, or architectural distortion. No evidence of malignancy. MM/MM scr tomosynthesis [id number] IMPRESSION: DENSITY: The breasts are heterogeneously dense, which may obscure small masses. BI-RADS: 1 - Negative FOLLOW UP: 1 Year Follow-up Recommend return to annual screening mammography.
== END 2025-01-21 13:31 | disposition home or self-care (01) ==
LOC: MOBLMAM 13:32
PROVIDERS: PCP Registered Nurse; Visit Provider Registered Nurse
DX: Z12.31 Encounter for screening mammogram for malignant neoplasm of breast (principal); R92.323 Mammographic fibroglandular density, bilateral breasts; R92.333 Mammographic heterogeneous density, bilateral breasts
CPT/HCPCS: 77063; 77067